=== PATIENT | female | born 1960 | race Caucasian/White ===

== ENCOUNTER 2018-03-11 07:31 | Outpatient (CLI) | payer BC ==
--- NOTE | 2018-03-11 09:40 | ULT ---
THYROID ULTRASOUND: Date: 03/11/18 HISTORY: Neck mass. COMPARISON: None. TECHNIQUE: Sagittal and transverse imaging of thyroid gland performed. FINDINGS: Thyroid isthmus measures 0.15 cm. Right thyroid lobe measures 1.2 x 3.9 x 1.0 cm. Left thyroid lobe m easures 1.1 x 3.8 x 1.0 cm. 0.6 cm solid nodule in the upper pole left thyroid lobe. 0.3 cm solid nodule in the mid pole left thy roid lobe. Palpable area in the right neck only demonstrates soft tissue echotexture. If there is concern, dedic ated CT is recommended. IMPRESSION: 1. Subcentimeter solid nodule in the left thyroid lobe. 2. No sonographic abnormality in the region of palpable concern. Postcontrast soft tissue neck CT is recommended. POS: MARK
== END 2018-03-11 07:32 | disposition home or self-care (01) ==
LOC: SCSULT 07:31
PROVIDERS: ATTEND Otolaryngology Pediatric Otolaryngology
DX: R22.1 Localized swelling, mass and lump, neck (principal); E04.1 Nontoxic single thyroid nodule
CPT/HCPCS: 76536

== ENCOUNTER 2018-03-22 08:19 | Outpatient (CLI) | payer BC ==
[2018-03-22] MEDS ORDERED: Iopamidol 370 76% 100 ML VIAL ONE (09:00)
--- NOTE | 2018-03-22 10:40 | CT ---
CT NECK WITH CONTRAST: HISTORY: Palpable mass in the right neck. COMPARISON: Thyroid ultrasound from 03/11/2018. TECHNIQUE: Multiple contiguous axial images were obtained in a CT of the neck with contrast. Sagittal and coron al reformats were performed. FINDINGS: A marker was placed at the area of palpable abnormality in the right neck. There is a 1.5 cm mass jus t beneath the skin, at the area of palpable abnormality. This mass is immediately adjacent to the ex ternal jugular vein and the sternocleidomastoid muscle. This mass appears separate from the thyroid gland. This mass measures 1.5 x 1.8 cm in size and appears solid without a cystic component. The collazo perficial aspect of the mass appears enhanced slightly more prominently than the more inferior aspect . No significant thyroid abnormality is seen on this exam. The salivary gland are unremarkable. No mu cosal abnormality is seen in the nasopharynx, oropharynx, hypopharynx, or subglottic regions. No enl arged cervical lymph nodes are seen. There are emphysematous changes in the lung apices. Degenerative changes are seen in the spine. IMPRESSION: The palpable mass in the right neck is a nonspecific solid mass. This does not appear to emanate fro m the thyroid gland. An MRI of the neck with and without contrast may be helpful for better differen tiation of this soft tissue density mass. POS: MARK
== END 2018-03-22 08:20 | disposition home or self-care (01) ==
LOC: SCSCT 08:19
PROVIDERS: ATTEND Otolaryngology Pediatric Otolaryngology
DX: R22.1 Localized swelling, mass and lump, neck (principal)
CPT/HCPCS: 70491

== ENCOUNTER 2018-04-15 08:32 | Outpatient (CLI) | payer BC ==
[2018-04-15] MEDS ORDERED: Gadobenate Dimeglumine 529 MG/1 ML (20ML VIAL) ONE (09:00)
--- NOTE | 2018-04-15 11:30 | MRI ---
MRI OF THE NECK WITH AND WITHOUT CONTRAST: Date: 04-15-18 Comparison: None. History: Palpable mass at the base of the neck on the right. Technique: Multiplanar, multisequence MR imaging of the neck is obtained with and without contrast. FINDINGS: In the area of palpable concern, there is a mass just deep to the skin surface measuring 9 x 11 mm. T his mass is just anterior to the right sternocleidomastoid muscle and right internal jugular vein at the axial level of the thyroid gland, just lateral to the external jugular vein. On the noncontrast e nhanced MR imaging its signal characteristics are similar to the adjacent musculature. On the axial T 2 imaging, it is also similar to the adjacent musculature. Post contrast imaging demonstrates no obvi ous enhancement although assessment is somewhat limited secondary to artifact through this region and loss of fat saturation. Coronal post contrast imaging is also limited on the basis of motion. Of not e, there is questionable enhancement along the superior margin of this lesion on recent CT performed 03-22-18 versus a prominent adjacent vessel. This lesion is not within the thyroid gland. No lymphadenopathy noted within the neck. No additional lesion is seen. The retroantral and parapharyngeal fat appears clear. The parotid and submandibular glands appear unr emarkable. There is multilevel facet hypertrophy within the cervical spine, incompletely assessed on this exam. Sagittal imaging demonstrates disc space narrowing at C3-4, C5-6, and C6-7 with disc bulge at these levels causing a degree of central canal stenosis. IMPRESSION: 1. Nonspecific soft tissue mass in the area of palpable concern. This does not demonstrate significan t enhancement and is not T2 hyperintense on this exam. However, there was questionable enhancement al lambert the superior margin of this lesion on recent CT. Etiology is uncertain. This could represent a ne urogenic tumor, a prominent node, or a low flow vascular malformation. Please consider a second look ultrasound for further assessment. POS: MARK
== END 2018-04-15 08:33 | disposition home or self-care (01) ==
LOC: SCSMRI 08:32
PROVIDERS: ATTEND Otolaryngology Pediatric Otolaryngology
DX: R22.1 Localized swelling, mass and lump, neck (principal)
CPT/HCPCS: 70543; A9579

== ENCOUNTER 2018-06-10 07:22 | Outpatient (CLI) | payer BC ==
--- NOTE | 2018-06-10 09:40 | ULT ---
\THYROID SONOGRAM NECK SOFT TISSUE SONOGRAM: History: Neck mass. Follow up. Comparison: Prior MRI, CT, and sonogram of the neck. FINDINGS: Right thyroid lobe is 4.6 cm and isthmus is 0.4 cm thickness. Normal appearance. Left thyroid lobe is 4.1 cm and again shows three small well circumscribed oval hypoechoic nodules, stable. Superficial to the right thyroid lobe, a lobular heterogeneous hypoechoic mass with some internal lob ular hypoechoic components measures up to 2.4 x 2.0 x 1.0 cm diameters, larger than on the prior exam s. Small amount of internal flow is associated with expected vascularity. This does not have the appe arance of an avascular malformation. Small amount of peripheral vascular flow suggest inflammation. IMPRESSION: Interval enlargement right anterior neck mass, now measuring up to 2.4 cm. Inflammatory versus neopla stic process. If lesion is not an obvious infectious/inflammatory process, needle cytology should be considered. This could be accomplished with ultrasound guidance as needed. POS: MARK
== END 2018-06-10 07:23 | disposition home or self-care (01) ==
LOC: SCSULT 07:22
PROVIDERS: ATTEND Otolaryngology Pediatric Otolaryngology
DX: E04.1 Nontoxic single thyroid nodule (principal); R22.1 Localized swelling, mass and lump, neck
CPT/HCPCS: 76536

== ENCOUNTER 2018-06-13 14:22 | Day surgery (SDC) | payer BC ==
[2018-06-12 13:27] VITALS: BMI 28.0
[2018-06-13] MEDS ORDERED: PROPOFOL 200 MG/20 ML VIAL ONE (14:47)
[2018-06-13] MEDS ORDERED: Lidocaine 1% PF 5 ML VIAL ONE (14:47)
[2018-06-13] MEDS ORDERED: Dexamethasone 20 MG/5 ML VIAL ONE (14:47)
[2018-06-13] MEDS ORDERED: Ondansetron HCl/PF 4 MG/2 ML Vial ONE (14:47)
[2018-06-13] MEDS ORDERED: Ketorolac Tromethamine 30 MG/ML VIAL ONE (14:47)
[2018-06-13] MEDS ORDERED: Famotidine/PF 20 mg/2ml Vial ONE (18:35)
[2018-06-13] MEDS ORDERED: Fentanyl 100 MCG/2 ML VIAL ONE ×2 (18:35→20:00)
[2018-06-13] MEDS ORDERED: Bupivacaine/Epinephrine 0.25% 30 ML VIAL ONE (18:41)
--- NOTE | 2018-06-14 10:09 | OP ---
DATE OF PROCEDURE: 06/26/2018 PREOPERATIVE DIAGNOSIS: Right lower neck mass. POSTOPERATIVE DIAGNOSIS: Right lower deep neck mass. PROCEDURE PERFORMED: Excision of right lower deep neck mass lesion. PROCEDURE IN DETAIL: After consent was obtained, the patient was identified and brought to the opera ting room and placed on the table in supine position. General endotracheal anesthesia obtained. The patient was positioned for surgery. The right lower neck was prepped and draped in a sterile fashio n and the patient was positioned for surgery. The area of intended natural skin crease in the lower neck was identified and infiltrated with 1% lidocaine with 1:100,000 epinephrine. An incision was th en made over the lesion and carried down through the skin, subcutaneous tissues, and subplatysmal fla ps were then elevated. We then dissected anterior to the sternocleidomastoid muscle near the carotid sheath. A vascular lesion was identified at that point and dissected meticulously from the surface of the jugular vein and carotid artery. This was sent for permanent histologic evaluation. No other lesions or masses were appreciated. It appeared to be consistent with an old blood clot. Hemostasi s was then obtained and the wound was closed in layers with absorbable suture, and the skin was close d with 6-0 Prolene. Sterile dressings were applied. The patient was awakened and taken to recovery where she remained in a stable condition prior to discharge home.
--- NOTE | 2018-07-01 06:24 | PQF ---
[facility] POST DISCHARGE CLINICAL DOCUMENTATION IMPROVEMENT CLARIFICATION FORM l Todays Date: 06/28/18 l Patients Name LIYAH BERUMEN l l Admit Date 06/13/18 l Disch Date 06/13/18 [employer] Apprentice Name Sanford Sauceda Email: [email or web address] Cell: [phone] Present Clinical Indicators - Signs / Symptoms Results and Location in Medical Record [ ] Documentation of: [ ] [ ] Documentation of: [ ] [ ] Documentation of: [ ] [ ] Documentation of: [ ] [ ] Risks [ ] [ ] [ ] Treatment [ ] Right lower deep neck mass Please specify the diameter excised of mass with narrowest margins in operative report [ ] [ ] Bubba Hwang The documentation in this patients record requires clarification to ensure coding compliance and accuracy. Check the appropriate box and include in your discharge summary. [ ] [ ] [ ] [ ] Please check this box if this does not apply to this patient [ ] Unable to determine [ ] Other diagnosis: Review the following information and exercise your independent professional judgment in responding to the clarification. Based upon the clinical findings, risk factors, and treatment, please clarify if you are treating one of the above probable or suspected diagnoses. MTDD
== END 2018-06-13 21:17 | disposition home or self-care (01) ==
LOC: SDC 14:22
PROVIDERS: ATTEND Specialist
PROC: 0JB40ZZ Excision of Right Neck Subcutaneous Tissue and Fascia, Open Approach (ICD-10-PCS; principal; 2018-06-13)
DX: D21.0 Benign neoplasm of connective and other soft tissue of head, face and neck (principal); M79.81 Nontraumatic hematoma of soft tissue; E04.1 Nontoxic single thyroid nodule; Z79.82 Long term (current) use of aspirin; Z79.899 Other long term (current) drug therapy
CPT/HCPCS: 85014; 88305; 88341; 88342; 93005; 93010; 96374; J1100; J1885; J2001; J2405; J2704; J3010; S0028

== ENCOUNTER 2019-07-02 07:14 | Outpatient (CLI) | payer BC ==
--- NOTE | 2019-07-02 08:26 | ULT ---
THYROID ULTRASOUND: INDICATIONS: Thyroid nodule. Followup. COMPARISON: 06/10/2018 FINDINGS: The previously documented mass has reportedly been surgically removed. Correlate with the patient's history. The right thyroid lobe demonstrates a length of 4.5 cm and the left thyroid lobe 4 cm. The thyroid i sthmus is 2 mm in thickness. There are scattered, multiple, subcentimeter foci of altered echotexture involving each thyroid lobe, as well as within the thyroid isthmus, compatible with multiple small, partially cystic and solid no dules. No dominant, suspicious nodule. IMPRESSION: 1. Interval surgical removal of prior neck mass has been reported. Correlate with surgical history. 2. Numerous punctate nodules of the thyroid gland without a dominant, discrete lesion. POS: CET
== END 2019-07-02 07:15 | disposition home or self-care (01) ==
LOC: SCSULT 07:14
PROVIDERS: ATTEND Specialist
DX: E04.2 Nontoxic multinodular goiter (principal)
CPT/HCPCS: 76536

== ENCOUNTER 2020-05-19 08:28 | Outpatient (CLI) | payer BC ==
--- NOTE | 2020-05-19 09:34 | ULT ---
Ultrasound thyroid: 05/19/2020 HISTORY: 60-year-old female annual follow-up of multiple thyroid nodules. FINDINGS: Isthmus: 0.2 cm AP Right lobe: 4.3 x 1.7 x 1.6 cm. Left lobe: 4.3 x 1.6 x 1.4 cm. Thyroid parenchymal echogenicity within normal limits. Numerous tiny mildly hypoechoic solid nodules: Ranging from approximately 0.2 cm to 0.5 cm, in the bilateral upper poles and mid poles. No single dominant nodule. No interval change overall IMPRESSION: Multiple scattered tiny, subcentimeter thyroid nodules. No dominant suspicious nodule.
== END 2020-05-19 08:29 | disposition home or self-care (01) ==
LOC: SCSULT 08:28
PROVIDERS: ATTEND Specialist
DX: E04.2 Nontoxic multinodular goiter (principal)
CPT/HCPCS: 76536